=== PATIENT | male | born 1995 | race Caucasian/White ===

== ENCOUNTER 2018-08-24 14:00 | Emergency (ER) | payer OTHER ==
[2018-08-24 14:12] VITALS: BP 132/77
--- NOTE | 2018-08-24 15:13 | ER Document Report ---
ED General - General Chief Complaint: Anxiety Stated Complaint: ANXIETY Time Seen by Provider: 08/24/18 15:04 Notes: Chief complaint: Anxiety History of complain:( obtained from----patient) 23 years old male with a history of anxiety and ADD was treated with Adderall, he says he ran out of the prescription ran him out of town therefore like to refill. Denies any suicidal or homicidal thoughts. Onset: As above Duration: Gradual long-standing Severity: Mild to moderate Quality: Mild Context: Mild Exacerbating factor and relieving factors: REVIEW OF SYSTEMS: CONSTITUTIONAL : Denies fever, chills, or sweats. Denies recent illness. EENT: Denies eye, ear, throat, or mouth pain or symptoms. Denies nasal or sinus congestion or discharge. Denies throat, tongue, or mouth swelling or difficulty swallowing. CARDIOVASCULAR: Denies chest pain. Denies palpitations or racing or irregular heart beat. Denies ankle edema. RESPIRATORY: Denies cough, cold, or chest congestion. Denies shortness of breath, difficulty breathing, or wheezing. GASTROINTESTINAL: Denies distention. Denies nausea, vomiting, or diarrhea. Denies blood in vomitus, stools, or per rectum. Denies black, tarry stools. Denies constipation. GENITOURINARY: Denies difficulty urinating, painful urination, burning, frequency, blood in urine, or discharge. FEMALE GENITOURINARY: Denies vaginal bleeding, heavy or abnormal periods, irregular periods. Denies vaginal discharge or odor. MUSCULOSKELETAL: Denies back or neck pain or stiffness. Denies joint pain or swelling. SKIN: Denies rash, lesions or sores. HEMATOLOGIC : Denies easy bruising or bleeding. LYMPHATIC: Denies swollen, enlarged glands. NEUROLOGICAL: Denies confusion or altered mental status. Denies passing out or loss of consciousness. Denies dizziness or lightheadedness. Denies headache. Denies weakness or paralysis or loss of use of either side. Denies problems with gait or speech. Denies sensory loss, numbness, or tingling. Denies seizures. PSYCHIATRIC: Denies anxiety or stress. Denies depression, suicidal ideation, or homicidal ideation. ALL OTHER SYSTEMS REVIEWED AND NEGATIVE. PHYSICAL EXAMINATION: GENERAL: Well-appearing, well-nourished and in no acute distress. HEAD: Atraumatic, normocephalic. EYES: Pupils equal round and reactive to light, extraocular movements intact, conjunctiva are normal. ENT: Nares patent, oropharynx clear without exudates. Moist mucous membranes. NECK: Normal range of motion, supple without lymphadenopathy LUNGS: Breath sounds clear to auscultation bilaterally and equal. No wheezes rales or rhonchi. HEART: Regular rate and rhythm without murmurs ABDOMEN: Soft, nontender, nondistended abdomen. No guarding, no rebound. No masses appreciated. Examination of genitals-deferred Musculoskeletal: Normal range of motion, no pitting or edema. No cyanosis. NEUROLOGICAL: Cranial nerves grossly intact. Normal speech, normal gait. Normal sensory, motor exams PSYCH: Normal mood, normal affect. SKIN: Warm, Dry, normal turgor, no rashes or lesions noted. Dictation was performed using [employer] voice recognition software TRAVEL OUTSIDE OF THE [place] IN LAST 30 DAYS: No - Related Data Allergies/Adverse Reactions: No Known Allergies Allergy (Unverified 08/24/18 14:02) Past Medical History - Social History Smoking Status: Current Every Day Smoker Chew tobacco use (# tins/day): No Frequency of alcohol use: Social Drug Abuse: None Lives with: Family Family History: Reviewed & Not Pertinent Patient has suicidal ideation: No Patient has homicidal ideation: No Renal/ Medical History: Denies: Hx Peritoneal Dialysis Psychiatric Medical History: Reports: Hx Attention Deficit Hyperactivity Disorder, Hx Depression Review of Systems - Review of Systems Notes: Dictated Physical Exam - Vital signs Vitals: Temp Pulse Resp BP Pulse Ox 98.0 F 100 18 132/77 H 95 08/24/18 14:11 08/24/18 14:11 08/24/18 14:11 08/24/18 14:11 08/24/18 14:11 - Notes Notes: Dictated Course - Vital Signs Vital signs: Temp Pulse Resp BP Pulse Ox 98.0 F 100 18 132/77 H 95 08/24/18 14:11 08/24/18 14:11 08/24/18 14:11 08/24/18 14:11 08/24/18 14:11 Discharge - Discharge Clinical Impression: Anxiety, Alopecia Condition: Fair Instructions: Anxiety ([facility]) Prescriptions: Buspirone HCl [Buspar 5 mg Tablet] 1 tab PO BID #60 tab Finasteride 1 mg PO DAILY #30 tablet
== END 2018-08-24 15:18 | disposition home or self-care (01) ==
LOC: ER 14:00
DX: F41.9 Anxiety disorder, unspecified (principal); L65.9 Nonscarring hair loss, unspecified; F17.200 Nicotine dependence, unspecified, uncomplicated
CPT/HCPCS: 99283